=== PATIENT | male | born 1955 | race Caucasian/White ===

== ENCOUNTER → 2020-02-28 | Outpatient (CLI) | payer OTHER ==
[~2020-02-28] VITALS: Ht 22.9 cm; Wt 125.9 kg
[~2020-02-28] MED LIST: AEC81 PO; CLOP75TA14 PO; FENO145T PO; METO100T14 PO; SIMV10TA97 PO; TAMS0.4C32 PO
--- NOTE | 2020-02-28 11:22 | NUR ---
INITIAL BARIATRIC NUTRITION COUNSELING VISIT DATE: 02/28/20 TIME: 9:45 - 10:37 Pt is seeking Bariatric surgical procedure in hopes to improve overall health through weight loss. Pt has had two incidences of collapsing due to weakness and shortness of breath which may be related to excess abdominal weight. Instances occurred when Pt would stand up and walk short distance, once at home and once at work. Pt with medical and surgical history of hernia repair (approx. 20 years ago), heart attack, hypertension and post heart attack procedure. Pt has now retired from work due to shortness of breath and is seeking procedure as an aid as shortness of breath has worsened and energy levels have declined further. Pt received Primary and [facility] referral. Pt with previous successful attempts at weight loss through dietary restriction and would plateau at 20 lbs weight loss. Pt now reports decreased PO intake as well as decreased physical activity due to severe shortness of breath. A 24-hour diet recall reveals that Pt eats low carbohydrate with mostly regular eating pattern. Pt recently has started waking up at 2AM due to unknown causes and offsets eating time. Otherwise Pt reports eating vegetables (likes salads) and tries to eat healthy. Pt also cares for 85 year-old mother at home. RD provided Healthy My Plate education and emphasized portion control and consuming foods from each healthy food category. Pt admits to not eating enough fruits. Pt reports drinking 2 bottles of water per day, however water intake is not meeting fluid needs. Upon follow up visit, RD to provide more in-depth nutrition education and nutritional recommendations. In the mean time, Pt to work on increasing fruit and fluid intake and decreasing intake of sodas. Progress to be reviewed on follow up visit. RD provided contact information to be notified as questions or concerns arise. Addendum: 02/28/20 at [address] RD Amended: Links added.
== END | disposition home or self-care (01) ==
LOC: DTH 09:23
PROVIDERS: ATTEND Surgery
DX: E66.01 Morbid (severe) obesity due to excess calories (principal); E11.9 Type 2 diabetes mellitus without complications
CPT/HCPCS: 97802

== ENCOUNTER → 2023-10-02 | Outpatient (CLI) | payer OTHER ==
[~2023-10-02] MED LIST changes: +CLOP-31 PO; -CLOP75TA14 PO; +FEXO1TAB8 PO; +FINA5TAB41 PO; +FLUT15.845 NS; +FLUT1BLS3 IH; +LOSA50TA64 PO; -METO100T14 PO; +PANT40TA54 PO; -SIMV10TA97 PO; +TAMS-1 PO; -TAMS0.4C32 PO
== END | disposition home or self-care (01) ==
LOC: SHCH 08:10
PROVIDERS: ATTEND Internal Medicine Cardiovascular Disease
DX: R55 Syncope and collapse (principal); Z95.5 Presence of coronary angioplasty implant and graft
CPT/HCPCS: 93880

== ENCOUNTER → 2023-10-12 | Outpatient (CLI) | payer OTHER ==
[2023-10-12] MEDS: REGADENOSON 0.4 MG/5 ML PF SYG IVP ONE (11:26)
== END | disposition home or self-care (01) ==
LOC: SHCH 08:19
PROVIDERS: ATTEND Internal Medicine Cardiovascular Disease
DX: R55 Syncope and collapse (principal); Z95.5 Presence of coronary angioplasty implant and graft
CPT/HCPCS: 78452; 96374; 93017; J2785; A9500 ×2